=== PATIENT | female | born 1955 | race Caucasian/White ===

== ENCOUNTER → 2019-02-10 15:56 | Outpatient (CLI) | payer MEDICARE, SELFPAY ==
[2019-02-10 16:29] LABS: D-Dimer Quantitative (DVT/PE) 2.59 FEU/ug/m (0.27-0.49)
== END ==
PROVIDERS: Referring Provider Internal Medicine Pulmonary Disease; Visit Provider Internal Medicine Pulmonary Disease
DX: R07.1 Chest pain on breathing (principal)
CPT/HCPCS: 85379